=== PATIENT | male | born 1985 | race Caucasian/White ===

== ENCOUNTER 2021-04-04 08:38 | Emergency (ER) | payer OTHER ==
[~2021-04-04] VITALS: Ht 172.7 cm; Wt 63.5 kg
[~2021-04-04 08:38] MED LIST: ALBU90OI INH; HYDHCL25 PO; IBUP800 PO; MEBE100 PO; POLTRIOPSO OS; RXERYTOPTH OP; SULTRIDS PO; TERB24TC TOP
[2021-04-04] MEDS ORDERED: HUMIRA PEN40 MG/0.2 SC (08:46)
[2021-04-04] MEDS ORDERED: PRED20 PO (11:18)
[2021-04-04] MEDS ORDERED: ALBU90OI INH (11:18)
[2021-04-04] MEDS ORDERED: ZYRTEC10 M2 PO (11:18)
== END 2021-04-04 11:25 | disposition home or self-care (01) ==
LOC: ER 08:38
DX: J44.1 Chronic obstructive pulmonary disease with (acute) exacerbation (principal); Z87.891 Personal history of nicotine dependence
CPT/HCPCS: 71045; 93005; 93010; 94640; 99285-25; A9270; J7512